=== PATIENT | male | born 1955 | race Caucasian/White ===

== ENCOUNTER 2024-11-11 19:56 | Emergency (ER) | payer OTHER ==
[~2024-11-11] VITALS: Ht 175.3 cm; Wt 94.3 kg
[2024-11-11 20:30] LABS: PLATELET COUNT (AUTO) 131 K/uL (150-450); RED BLOOD CELL COUNT(AUTO) 3.76 MIL/uL (4.5-6.0); RED CELL DISTRIBUTION WIDTH 15.8 % (11.5-15.0); WHITE BLOOD COUNT (AUTO) 4.1 K/uL (4.3-11.0)
[2024-11-11 20:43] LABS: CALCIUM, SERUM 9.5 mg/dL (8.5-10.1); CREATININE 0.8 mg/dL (0.6-1.3); SODIUM SERUM 139.0 mmol/L (136-145); UREA NITROGEN, BLOOD 20.0 mg/dL (7-18)
[2024-11-11 21:44] VITALS: BP 135/62; TEMP 98.2; O2SAT 96
[2024-11-11 21:56] LABS: LYMPHOCYTES % (MANUAL) 50 % (16-48); MONOCYTES % (MANUAL) 25 % (0-11.0); NEUTROPHILS % (MANUAL) 25 (42-76)
[2024-11-11 21:57] LABS: PLATELET ESTIMATE DECREASED
== END 2024-11-11 21:44 ==
LOC: ER 20:00
DX: D61.818 Other pancytopenia (principal); E11.9 Type 2 diabetes mellitus without complications
CPT/HCPCS: 36415; 80048-TC; 85027-TC